=== PATIENT | male | born 1945 | race Caucasian/White ===

== ENCOUNTER 2023-04-25 13:39 | Emergency (ER) | payer MEDICARE, SELFPAY ==
--- NOTE | 2023-04-25 13:48 | ED.LOWEXIN ---
HPI - Extremity Injury (Lower) General Chief Complaint: Extremity Injury, Lower Stated Complaint: slipped hurt left knee Time Seen by Provider: 04/25/23 13:48 Source: patient Mode of arrival: ambulatory Limitations: no limitations History of Present Illness HPI Narrative: Yelena is a 77-year-old male patient presenting to clinic today with complaints of possible infected knee wound after scraping it on his truck Friday. He reports wound is red and swollen and painful to palpation with yellowish green discharge. No fever or chills. Related Data Home Medications Medication Instructions Recorded Confirmed fluticasone propionate 50 1 spray intranasal DAILY 04/25/23 04/25/23 mcg/actuation nasal spray,suspension meloxicam 7.5 mg tablet 7.5 mg PO DAILY 04/25/23 04/25/23 omeprazole 20 mg capsule,delayed 20 mg PO DAILY 04/25/23 04/25/23 release simvastatin 40 mg tablet 40 mg PO DAILY 04/25/23 04/25/23 tamsulosin 0.4 mg capsule 0.4 mg PO DAILY 04/25/23 04/25/23 valacyclovir 1 gram tablet 1,000 mg PO DAILY 04/25/23 04/25/23 Allergies Allergy/AdvReac Type Severity Reaction Status Date / Time No Known Allergies Allergy Verified 04/25/23 14:05 Review of Systems Review of Systems: Pertinent positives per HPI. Patient denies any fever, chills, rash, headache, visual changes, dizziness, cough, shortness of breath, chest pain, palpitations, nausea, vomiting, diarrhea, constipation, abdominal pain, or any urinary issues. PMFSH Comments At the time of my signature, I reviewed and agree with the nursing past medical, surgical, social, and family history. There is no relevant family history pertinent to the patient complaint. Exam Narrative: General: Well-developed, well nourished, in no apparent distress Head: Normocephalic, atraumatic. Cardio: Regular rate and rhythm, s1 and s2 normal, no murmur appreciated. Resp: Clear to auscultation bilaterally, no rhonchi, rales, wheezing or rubs. Integumentary: Garey, warm, and dry, 6 cm by 1 cm open wound with surrounding redness and erythema. Yellowish green discharge from the wound with yellow eschar tissue Course Course Emergency Course: Portions of this record may have been created with voice recognition software. Level of Care: Express Care Visit Vital Signs Vital signs: Vital signs reviewed MDM - Extremity Injury (Lower) MDM Narrative Medical decision making narrative: At the time of visit patient is resting comfortably on the exam table. I suspect patient has a wound infection to the left tib-fib. Will send in prescription for doxycycline. Supportive measures were discussed with the patient he voiced understanding discharge instructions and agrees to treatment plan Differential Diagnosis Differential diagnosis: Likely acute internal derangement of knee and other (Left knee sprain, left kneet ibia fracture, left femur fracture) Discharge Plan Discharge Clinical Impression: Wound infection Patient Disposition: Home, Self-Care Condition: Stable Instructions: Antibiotic Form, Wound Infection (ED) Additional Instructions: Wash wound daily with soap and water May apply Band-Aid over the wound if it is draining or if your wearing pants so it does not irritate the wound Take doxycycline as prescribed May take Tylenol/Motrin as needed for pain Follow-up with your PCP in 3-5 days if symptoms persist or sooner if they worsen Go to the emergency room if you develop high fever not controlled by Tylenol or Motrin, weakness, lethargy, confusion, increase in swelling around the wound, purulent discharge, shortness of breath, chest pain, or abdominal pain Prescriptions: New doxycycline hyclate 100 mg capsule 100 mg PO BID 7 Days Qty: 14 0RF No Action valacyclovir 1 gram tablet 1,000 mg PO DAILY simvastatin 40 mg tablet 40 mg PO DAILY meloxicam 7.5 mg tablet 7.5 mg PO DAILY tamsulosin 0.4 mg capsule 0.4 mg PO
[2023-04-25 14:02] VITALS: BP 150/66; PULSE 84; RESP 18; TEMP 37.5; O2SAT 97
[2023-04-25] MEDS: TETANUS,DIPHTHERIA,AC PERTUSSIS ADULT (0.5 ML) BOOSTRIX IM (14:14)
== END 2023-04-25 14:19 | disposition home or self-care (01) ==
LOC: EXPBETH 13:55
PROVIDERS: Emergency Provider Nurse Practitioner Family
DX: S81.002A Unspecified open wound, left knee, initial encounter (principal); L08.9 Local infection of the skin and subcutaneous tissue, unspecified; W22.8XXA Striking against or struck by other objects, initial encounter; Z23 Encounter for immunization
CPT/HCPCS: 90471; 90715; 99213; G0463